=== PATIENT | male | born 1970 | race Caucasian/White ===

== ENCOUNTER → 2016-07-21 | Outpatient (CLI) | payer OTHER ==
--- NOTE | 2016-07-23 08:25 | RAD ---
2-VIEW CHEST X-RAY. DATE: 07/21/2016 8:41 AM CDT INDICATION: MAIN TECHNIQUE: Frontal and lateral views of the chest were performed. COMPARISON:None FINDINGS: Focal opacity noted on the lateral view in the upper lungs. The lungs are clear without focal mass or consolidation. There are no effusions. The cardiomediastinal silhouette is within normal limits. The osseous structure show no significant finding. The visualized abdomen is unremarkable. IMPRESSION: Focal opacity in the upper lung on the lateral view may represent prominent vascular. Follow-up chest x-ray or further correlation with CT chest may be considered. Electronically signed by: Petey Polanco MD 07/23/2016 8:24 AM CDT
== END | disposition home or self-care (01) ==
LOC: RAD 08:35
PROVIDERS: ATTEND Nurse Practitioner Family
DX: R05 Cough (principal)

== ENCOUNTER → 2016-08-10 | Outpatient (CLI) | payer OTHER ==
--- NOTE | 2016-08-10 08:51 | CT ---
Study: CT Chest. Indication: COUGH Technique: CT imaging of the chest obtained without intravenous administration of contrast. This exam was performed according to our departmental dose-optimization program, which includes automated exposure control, adjustment of the mA and/or kV according to patient size and/or use of iterative reconstruction technique. Comparison: Radiographs July 21, 2016. Findings: Heart size normal. No pathologically enlarged mediastinal or hilar lymphadenopathy in the absence of intravenous contrast. No acute osseous abnormality. Lungs clear without consolidation, pleural effusion, pneumothorax, or pulmonary mass. Impression: Unremarkable unenhanced CT of the chest. Electronically signed by: Juan Velazquez MD 08/10/2016 8:51 AM CDT
== END ==
LOC: CT 08:06
PROVIDERS: ATTEND Nurse Practitioner Family
DX: R05 Cough (principal); R93.8 Abnormal findings on diagnostic imaging of other specified body structures

== ENCOUNTER 2019-06-23 19:32 | Inpatient (IN) | payer SELFPAY ==
[2019-06-23] MEDS ORDERED: methylPREDNISolone SODIUM SUC 125 MG/2 ML VIAL IV ONE (19:53)
[2019-06-23] MEDS ORDERED: SODIUM CHLORIDE 0.9% 1000ML 1,000 ML IVS ONE (19:53)
[2019-06-23] MEDS ORDERED: SUCRALFATE 1 GM/10 ML 1 GM UD PO ONE (19:53)
[2019-06-23] MEDS ORDERED: PIPERACILLIN/TAZOBACTAM 3.375 GM in SODIUM CHLORIDE 0.9% 100ML 100 ML IVPB ONE (21:11)
[2019-06-23] MEDS ORDERED: metroNIDAZOLE IV PREMIX 500MG 500 MG in PREMIX BAG 1 BAG IVPB ONE (21:11)
--- NOTE | 2019-06-23 21:12 | CT ---
CT ABDOMEN PELVIS WITH IV CONTRAST Exam date: June 23, 2019 Comparison: None Indication: Lower abdominal pain Technique: Multiple helical axial images were obtained through the abdomen and pelvis using intravenous contrast. Coronal and sagittal reformatted images were obtained. All CT scans at this facility use dose modulation, iterative reconstruction, and/or weight-based dosing when appropriate to reduce radiation dose to as low as reasonably achievable. Findings: Lung bases: [Appear unremarkable]. Liver: [Homogenous attenuation is noted.] Gallbladder/biliary: [Appears unremarkable] Pancreas: [Unremarkable. No evidence of ductal enlargement.] Spleen: Appears unremarkable. No splenomegaly. Adrenals: Unremarkable. Kidneys and ureters: [No evidence of hydronephrosis. Normal enhancement.] There is a 2 mm stone at the inferior pole of the left kidney. There is a 1 mm stone at the superior pole of the right kidney. Bladder: Unremarkable. Pelvic organs: Unremarkable. Bowel: [Colonic diverticula are present. Mid sigmoid colon appears thickened with adjacent stranding compatible with diverticulitis. There are few tiny foci of air adjacent to the thickened sigmoid colon suggestive of perforation. No evidence of abscess. No evidence of bowel obstruction.] Appendix appears unremarkable. Vasculature: Unremarkable. Peritoneum: No free air. No significant free fluid. Lymph nodes: Unremarkable. Soft tissues: Unremarkable. Bones: A few old left rib fractures are present. Impression: 1. Findings compatible with diverticulitis involving the sigmoid colon. Few tiny foci of free air near the sigmoid colon suggestive of perforation. 2. Tiny nonobstructing bilateral renal stones. THIS REPORT CONTAINS FINDINGS THAT MAY BE CRITICAL TO PATIENT CARE: The findings were verbally discussed via telephone conference with Dr. Morelos by Dr. Cancino at 2109 hours, June 23, 2019. The results were acknowledged and understood. Electronically signed by: Adams Cancino MD 06/23/2019 9:10 PM CDT
[2019-06-23] MEDS ORDERED: SODIUM CHLORIDE 0.9% 100ML 100 ML IVPB ONE ×2 (21:13→22:50)
[2019-06-23] MEDS ORDERED: PIPERACILLIN/TAZOBACTAM 3.375 GM VIAL IVPB ONE ×2 (21:13→22:50)
[2019-06-23] MEDS ORDERED: metroNIDAZOLE IV PREMIX 500MG 100 ML IVPB ONE ×2 (21:13→22:49)
--- NOTE | 2019-06-23 21:20 | ED.PDOC ---
History of Present Illness - General Chief Complaint: Abdominal Pain Stated Complaint: lower abdomen pain Time Seen by Provider: 06/23/19 19:46 Source: patient Exam Limitations: no limitations - History of Present Illness Initial Comments: The patient is a 49-year-old male presented to the emergency room secondary to severe worsening of abdominal pain today. The patient had apparently had abdominal pain about 10 days to 2 weeks ago. He does have a history of diverticulitis and was placed on a week's course of Cipro and metronidazole. He did improve but after the antibiotics have been stopped 4 or 5 days, the pain returned today. He reports a fever as well. Mild nausea. He is currently having hiccups. He is pleasant and cooperative. He does report some diarrhea. He also reports a history of ulcerative colitis but has not been on any treatment since 2008. Timing/Duration: unsure Severity: severe Improving Factors: nothing Worsening Factors: nothing Associated Symptoms: loss of appetite, malaise Allergies/Adverse Reactions: Allergies NO KNOWN ALLERGY Allergy (Verified 06/23/19 19:49) Review of Systems - Review of Systems Constitutional: States: fever, malaise EENTM: States: no symptoms reported Respiratory: States: no symptoms reported Cardiology: States: no symptoms reported Gastrointestinal/Abdominal: States: abdominal pain, diarrhea Genitourinary: States: no symptoms reported Musculoskeletal: States: no symptoms reported Skin: States: no symptoms reported Neurological: States: no symptoms reported Endocrine: States: no symptoms reported All other Systems: No Change from Baseline Past Medical History (General) - Patient Medical History Hx Seizures: No Hx Stroke: No Hx Dementia: No Hx Asthma: No Hx of COPD: No Hx Cardiac Disorders: No Hx Congestive Heart Failure: No Hx Pacemaker: No Hx Hypertension: Yes Hx Thyroid Disease: No Hx Diabetes: No Hx Gastroesophageal Reflux: No Hx Renal Disease: No Hx Cancer: No Hx of HIV: No Hx Hepatitis C: No Hx MRSA: No - Vaccination History Hx Tetanus, Diphtheria Vaccination: Yes Hx Influenza Vaccination: Yes Hx Pneumococcal Vaccination: No Immunizations Up to Date: No - Social History Hx Tobacco Use: No Hx Chewing Tobacco Use: No Hx Alcohol Use: Yes Hx Substance Use: No Hx Substance Use Treatment: No Hx Depression: No Feels Threatened In Home Enviroment: No Feels Threatened In a Relationship: No Hx Physical Abuse: No Hx Emotional Abuse: No Hx Suspected Abuse: No - Female History Patient is a Female of Child Bearing Age (10 -59 yrs old): No Family Medical History - Family History Mother Family History: Unknown Physical Exam - Physical Exam General Appearance: Alert, Other - Obviously uncomfortable Eye Exam: bilateral normal Ears, Nose, Throat: hearing grossly normal, normal ENT inspection Neck: full range of motion, supple Respiratory: no respiratory distress, no accessory muscle use Cardiovascular/Chest: normal peripheral pulses, no edema, tachycardia Peripheral Pulses: radial,right: 2+, radial,left: 2+ Gastrointestinal/Abdominal: other - The patient has some guarding of the lower abdomen. No definite palpable mass. Pain is localized to the lower abdomen. Rectal Exam: deferred Extremity: normal range of motion, no pedal edema, normal capillary refill Neurologic: annual giving officer II-XII nml as tested, alert, normal mood/affect, oriented x 3 Skin Exam: other - Red Comments: Vital Signs - 24 hr 06/23/19 06/23/19 06/23/19 19:42 20:49 21:00 Temperature 99.8 F H Pulse Rate [ 130 H 112 H 108 H Pulse Ox] Respiratory 20 16 14 Rate Blood Pressure 138/108 154/87 145/83 [Left Arm] O2 Sat by Pulse 95 93 L 95 Oximetry Progress - Progress Progress: 06/23/19 21:23 Patient is a 49-year-old male presented emergency room with what appears to be sigmoid diverticulitis with microperforation. Dr. Scott, the general surgeon has been consulted and will see the patient in the morning. Will be allowed clear liquids for now and will need to be n.p.o. after around 2 AM for surgical evaluation in the morning. He did receive a dose of IV Solu- Medrol. Blood has been cultured. He did receive a dose of chlorpromazine for the hiccups which seems to have worked. C. difficile on the stool is still pending. The patient is being started on Zosyn and metronidazole. Admit for continued care. - Results/Orders Results/Orders: 06/23/19 19:48 cdiff [CLOSTRIDIUM DIFFICILE AG/TOXIN] Stat 06/23/19 20:[address] scan of abdomen pelvis shows sigmoid diverticulitis with microperforation. No abscess. No obstruction. See report for details. Laboratory Results - last 24 hr 06/23/19 06/23/19 06/23/19 19:57 19:57 19:57 WBC 18.4 H RBC 6.46 H Hgb 19.5 H Hct 57.8 H MCV 89.5 MCH 30.2 MCHC 33.8 RDW 14.7 H Plt Count 230 MPV 6.5 L Absolute Neuts (auto) 16.00 H Absolute Lymphs (auto) 1.10 Absolute Monos (auto) 1.20 H Absolute Eos (auto) 0.00 Absolute Basos (auto) 0.10 Neutrophils % 86.5 H Lymphocytes % 6.1 L Monocytes % 6.7 Eosinophils % 0.1 L Basophils % 0.6 ESR 0 PT 10.8 INR 1.09 PTT (SP) 24.4 D-Dimer, Quantitative 144 Sodium Potassium Chloride Carbon Dioxide Anion Gap BUN Creatinine BUN/Creatinine Ratio Random Glucose Serum Osmolality Lactic Acid Calcium Total Bilirubin AST ALT Alkaline Phosphatase Serum Total Protein Albumin Globulin Albumin/Globulin Ratio Amylase Lipase Urine Color Urine Appearance Urine pH Ur Specific Dillon Urine Protein Urine Glucose (UA) Urine Ketones Urine Blood Urine Nitrite Urine Bilirubin Urine Urobilinogen Ur Leukocyte Esterase Urine RBC Urine WBC Ur Epithelial Cells Urine Bacteria 06/23/19 06/23/19 06/23/19 19:57 19:57 20:30 WBC RBC Hgb Hct MCV MCH MCHC RDW Plt Count MPV Absolute Neuts (auto) Absolute Lymphs (auto) Absolute Monos (auto) Absolute Eos (auto) Absolute Basos (auto) Neutrophils % Lymphocytes % Monocytes % Eosinophils % Basophils % ESR PT INR PTT (SP) D-Dimer, Quantitative Sodium 135 Potassium 3.5 L Chloride 96 L Carbon Dioxide 30 Anion Gap 12.5 BUN 13 Creatinine 1.03 BUN/Creatinine Ratio 12.6 Random Glucose 122 H Serum Osmolality 271.5 L Lactic Acid 1.7 Calcium 9.0 Total Bilirubin 1.8 H AST 43 H ALT 33 Alkaline Phosphatase 45 Serum Total Protein 6.8 Albumin 4.1 Globulin 2.7 Albumin/Globulin Ratio 1.5 Amylase 40 Lipase 33 Urine Color Dk yellow Urine Appearance Clear Urine pH 7.5 Ur Specific Dillon 1.020 Urine Protein Trace Urine Glucose (UA) Negative Urine Ketones Trace Urine Blood Negative Urine Nitrite Negative Urine Bilirubin Small H Urine Urobilinogen 2.0 H Ur Leukocyte Esterase Negative Urine RBC 0 Urine WBC 0 Ur Epithelial Cells 0 Urine Bacteria 0 Departure - Departure Clinical Impression: Diverticulitis ICD-10 Supporting Text: Of the sigmoid colon, initial evaluation, microperforations. Disposition: Admit Patient Condition: Serious Departure Forms: ED Discharge - Pt. Copy, Patient Portal Self Enrollment Referrals: Maritza Baker NP [Primary Care Provider] - 1-2 Weeks Decision To Admit - Decistion To Admit Decision to Admit Reason: Medical Nature Decision to Admit Date: 06/23/19 Decision to Admit Time: 21:25
--- NOTE | 2019-06-23 21:30 | HP ---
SUPERVISING PHYSICIAN: Stephen Treviño MD CHIEF COMPLAINT: Abdominal pain. HISTORY OF PRESENT ILLNESS: This is a 49-year-old male patient who has had about 2 to 3 weeks of left lower quadrant and suprapubic abdominal pain. He has a history of diverticulitis and he was treated as an outpatient with 10 days of Flagyl and ciprofloxacin. He finished his round of antibiotics about 4 to 5 days prior to his admission to the Emergency Room. He has also had several bouts of diarrhea. He has not had a significant flare-up of his diverticulitis since 2003. About 10 years ago, he changed his diet and has not had difficulty since that time. He also has a remote history of ulcerative colitis with several years of treatment although he has not been on any treatment for that in over 15 years. He presented to the Emergency Room with a temperature of 99.8, heart rate 130, blood pressure 138/108, respiratory rate 20, O2 saturation 95%. His temperature did go up to 100.8. Lab was drawn. WBCs 18,400, hemoglobin 19.5, hematocrit 57.8. He had a left shift on his differential. D-dimer was negative at 144. Sodium 135, potassium 3.5, chloride 96. Bilirubin was 1.8, AST 43. Urinalysis was unremarkable. Blood cultures were drawn. The patient received fluids as well as CT of the abdomen did show findings compatible with diverticulitis involving the sigmoid colon. A few tiny foci of free air near the sigmoid colon suggestive of perforation and two tiny nonobstructing bilateral renal stones. He also had complaints of hiccups and was given some Thorazine for those. He was also started on Flagyl. I was called for hospital admission. PAST MEDICAL HISTORY: 1. Hypertension. 2. Depression. 3. Low testosterone. 4. Elevated H&H secondary to testosterone supplementation. 5. Remote history of ulcerative colitis. 6. History of diverticulitis. PAST SURGICAL HISTORY: 1. Thyroid surgery. OUTPATIENT MEDICATIONS: 1. Lexapro. 2. Losartan. ALLERGIES: NO KNOWN DRUG ALLERGIES. FAMILY HISTORY: Positive for colon cancer, lung cancer and coronary artery disease. 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 He is . He denies any tobacco use. He does drink alcohol on a social basis. He has a distant history of IV narcotic abuse. REVIEW OF SYSTEMS: GENERAL: Positive for fever and fatigue. Negative for weight changes. HEENT: Negative for sinus symptoms, ear pain, vision changes or sore throat. RESPIRATORY: Negative for wheezing, coughing or shortness of breath. CARDIAC: Negative for chest pain, palpitations or tachycardia. GASTROINTESTINAL: As per history of present illness. Denies nausea or vomiting. GENITOURINARY: Negative for hematuria, dysuria or polyuria. SKIN: Negative for lesions or rashes. NEUROLOGIC: Negative for headache, weakness or seizures. PHYSICAL EXAMINATION: VITAL SIGNS: Temperature 100.8, heart rate 114, blood pressure 125/85, respiratory rate 16, O2 saturation 95% on room. GENERAL: This is a 49-year-old male patient who is lying in his hospital bed. He is in no acute distress. HEENT: Normocephalic, atraumatic. Pupils are equal and reactive. Oropharynx is clear. NECK: Supple without mass. RESPIRATORY: Essentially clear to auscultation bilaterally. CHEST: There is equal rise and fall of the chest with inspiration and expiration. CARDIOVASCULAR: Regular rate and rhythm. GASTROINTESTINAL: Abdomen is soft. Bowel sounds are hyperactive. He is moderately tender in the left lower quadrant and the suprapubic area. He has guarding. NEUROLOGIC: Awake, alert and oriented times three. Cranial nerves II-XII are grossly intact as tested. LABORATORY: Labs and films are as per history of present illness. IMPRESSION: 1. Sepsis related to acute diverticulitis with an admitting temperature of 100.8, heart rate 130 and WBC 18,400. 2. Hypertension on medications. 3. Depression on medication. PLAN: The patient has been admitted to the hospital. Dr. Scott was consulted in the ER and I have consulted him formally. He will be on bowel rest as well as proton pump inhibitor for ulcer prophylaxis and Lovenox for DVT prophylaxis. I will continue him on Zosyn and Flagyl. I will defer to Dr. Scott for any other issues. We will repeat his lab in the morning. He has also had Dilaudid for pain. We will continue to monitor the patient closely and follow as needed. [facility][id number]
[2019-06-23] MEDS ORDERED: ONDANSETRON INJ 4 MG/2 ML VIAL IV PRN (22:25)
[2019-06-23] MEDS ORDERED: SODIUM CHLORIDE 0.9% (FLUSH) 10 ML SYG IV PRN (22:25)
[2019-06-23] MEDS ORDERED: IV SET AND CAP CHANGE INJ INJ SCH (22:30)
[2019-06-23] MEDS: HYDROmorphone HCL INJ 2 MG/ML VIAL IV PRN (22:57)
[2019-06-23] MEDS: KCL 20MEQ/D5NS 1,000 ML IVS PRN (22:57)
[2019-06-24] MEDS: PIPERACILLIN/TAZOBACTAM 3.375 GM in SODIUM CHLORIDE 0.9% 100ML 100 ML IVPB SCH ×4 (03:30→20:32)
[2019-06-24] MEDS: HYDROmorphone HCL INJ 2 MG/ML VIAL IV PRN ×4 (05:55→21:00)
[2019-06-24] MEDS: PANTOPRAZOLE SODIUM IV 40 MG VIAL IV SCH (05:56)
[2019-06-24] MEDS: metroNIDAZOLE IV PREMIX 500MG 500 MG in PREMIX BAG 1 BAG IVPB SCH ×3 (05:56→22:24)
[2019-06-24] MEDS ORDERED: LOSARTAN POTASSIUM 25 MG TAB ONE (07:21)
[2019-06-24] MEDS ORDERED: PIPERACILLIN/TAZOBACTAM 3.375 GM VIAL IVPB ONE ×4 (07:22→19:04)
[2019-06-24] MEDS ORDERED: SODIUM CHLORIDE 0.9% 100ML 100 ML IVPB ONE ×3 (07:22→19:04)
[2019-06-24] MEDS: SODIUM CHLORIDE 0.9% (FLUSH) 10 ML SYG IV SCH ×2 (08:46→20:34)
[2019-06-24] MEDS: ESCITALOPRAM 10 MG TAB PO SCH (08:48)
[2019-06-24] MEDS: LOSARTAN POTASSIUM 25 MG TAB PO SCH (08:48)
[2019-06-24] MEDS ORDERED: MAGNESIUM SULFATE PREMIX 2GM 2 GM in PREMIX BAG 1 BAG IVPB ONE (09:02)
[2019-06-24] MEDS ORDERED: MAGNESIUM SULFATE PREMIX 2GM 50 ML IVPB ONE (09:28)
[2019-06-24] MEDS: KCL 20MEQ/D5NS 1,000 ML IVS PRN ×2 (10:00→19:08)
[2019-06-24] MEDS ORDERED: metroNIDAZOLE IV PREMIX 500MG 100 ML IVPB ONE ×2 (13:56→19:04)
[2019-06-24] MEDS: ENOXAPARIN SODIUM 40 MG/0.4 ML SYG SUBCU SCH (21:30)
[2019-06-25] MEDS ORDERED: PIPERACILLIN/TAZOBACTAM 3.375 GM VIAL IVPB ONE ×4 (01:33→21:13)
[2019-06-25] MEDS ORDERED: metroNIDAZOLE IV PREMIX 500MG 100 ML IVPB ONE ×3 (01:33→21:13)
[2019-06-25] MEDS ORDERED: SODIUM CHLORIDE 0.9% 100ML 100 ML IVPB ONE ×4 (01:33→21:14)
[2019-06-25] MEDS: PIPERACILLIN/TAZOBACTAM 3.375 GM in SODIUM CHLORIDE 0.9% 100ML 100 ML IVPB SCH ×4 (03:33→21:28)
[2019-06-25] MEDS: metroNIDAZOLE IV PREMIX 500MG 500 MG in PREMIX BAG 1 BAG IVPB SCH ×3 (05:48→22:28)
[2019-06-25] MEDS: HYDROmorphone HCL INJ 2 MG/ML VIAL IV PRN ×3 (05:49→14:35)
[2019-06-25] MEDS: PANTOPRAZOLE SODIUM IV 40 MG VIAL IV SCH (06:11)
[2019-06-25] MEDS: LOSARTAN POTASSIUM 25 MG TAB PO SCH (08:34)
[2019-06-25] MEDS: ESCITALOPRAM 10 MG TAB PO SCH (08:35)
[2019-06-25] MEDS: SODIUM CHLORIDE 0.9% (FLUSH) 10 ML SYG IV SCH ×2 (08:35→21:29)
[2019-06-25] MEDS: KCL 20MEQ/D5NS 1,000 ML IVS PRN ×2 (10:27→21:30)
--- NOTE | 2019-06-25 10:30 | RAD ---
EXAM DESCRIPTION: Abdomen Flat Upright CLINICAL HISTORY: worsening abd pain COMPARISON: None. FINDINGS: AP supine and upright views of the abdomen show a nonspecific, nonobstructive bowel gas pattern. Subtle lucency below the right hemidiaphragm seen on the AP upright view.. No air-filled dilated loops of small bowel are seen. No significant air-fluid levels are identified. No obvious organomegaly is seen. No abnormal calcifications are seen in the expected location of the renal collecting systems. Visualized lung bases are otherwise unremarkable. IMPRESSION: Subtle lucency below the right hemidiaphragm is seen concerning for free intraperitoneal air versus imaging artifact. Recommend further evaluation with left lateral decubitus x-ray of the abdomen or CT imaging . Bowel gas pattern is otherwise nonspecific Findings on this exam were called to LUIS ALBERTO Garner at 06/25/2019 10:23 AM CDT by Nirav Ashraf MD. Electronically signed by: Gallo Ashraf MD 06/25/2019 10:28 AM CDT
--- NOTE | 2019-06-25 13:34 | PN ---
SUPERVISING PHYSICIAN: Stephen Treviño MD DATE: 06/24/19 SUBJECTIVE: The patient is lying in bed. He has no complaints of nausea, vomiting, diarrhea or constipation although he did have some diarrhea in the ER. There is no chest pain or shortness of breath. OBJECTIVE: VITAL SIGNS: Temperature 97.4. Heart rate 81. Blood pressure 144/82. Respiratory rate 16. O2 saturation 98% on room air. RESPIRATORY: Essentially clear to auscultation bilaterally. CARDIAC: Regular rate and rhythm. GASTROINTESTINAL: Abdomen is soft, nondistended. He does have some tenderness in the suprapubic to left lower quadrant area. There is some mild guarding, but no rebound tenderness. NEUROLOGIC: Awake, alert and oriented times three. LABORATORY: WBCs have improved to 13,300, hemoglobin 17.2, hematocrit 51.6. Sodium 134, potassium 4.7, chloride 99. Calcium 8.3, magnesium 1.7. Bilirubin 1.8. Preliminary blood cultures show no growth after 24 hours. All other labs and films have been reviewed via the EMR. ASSESSMENT: 1. Sepsis related to acute diverticulitis with an admitting temperature of 100.8, heart rate 130 and WBC 18,400. 2. Hypertension. 3. Depression on medication. PLAN: We will continue present supportive care. Dr. Scott saw the patient and we will continue with bowel rest. He did allow him to have a few ice chips. We will monitor that closely. I ordered labs for in the morning. I will defer any other issues to Dr. Scott. We will continue to monitor the patient closely and follow as needed. #[id number] [facility]
--- NOTE | 2019-06-25 15:25 | PN ---
SUPERVISING PHYSICIAN: Stephen Treviño MD DATE: 06/25/19 SUBJECTIVE: The patient is lying in bed. He earlier today had increased abdominal pain, especially in the suprapubic area, but it has improved since that time. He said he had a bowel movement and after that, the pain was much less severe. He denies shortness of breath, nausea or vomiting. OBJECTIVE: VITAL SIGNS: Temperature 99.3. Heart rate 86. Blood pressure 161/72. Respiratory rate 16. O2 saturation 96% on room air. RESPIRATORY: Essentially clear to auscultation bilaterally. CARDIAC: Regular rate and rhythm. GASTROINTESTINAL: Abdomen is soft, nondistended. He does have some moderate tenderness in the suprapubic to left lower quadrant area. He does have some guarding, but no rebound tenderness. NEUROLOGIC: Awake, alert and oriented times three. LABORATORY: WBCs have normalized to 8.6. He does have a left shift on his differential. Electrolytes are basically within normal limits. Total bilirubin improved to 1.4. Preliminary blood cultures show no growth after 24 hours. Abdominal x-ray shows subtle lucency below the right hemidiaphragm seen concerning for free intraperitoneal air versus imaging artifact. Recommend further evaluation with left lateral decubitus x-ray of the abdomen or CT imaging. Bowel gas pattern is otherwise nonspecific. All other labs and films have been reviewed via the EMR. ASSESSMENT: 1. Sepsis related to acute diverticulitis with an admitting temperature of 100.8, heart rate 130 and WBC 18,400. 2. Hypertension. 3. Depression on medication. PLAN: We will continue present supportive care. He will continue with bowel rest, especially given his increased pain this morning. Dr. Scott and I were at bedside and discussed his plan of care with the patient. I will hold on any lab for now. We will continue to monitor the patient closely and follow as needed. [facility][id number] [facility]
[2019-06-25] MEDS: ENOXAPARIN SODIUM 40 MG/0.4 ML SYG SUBCU SCH (21:29)
[2019-06-26] MEDS ORDERED: SODIUM CHLORIDE 0.9% 100ML 100 ML IVPB ONE ×2 (02:27→08:30)
[2019-06-26] MEDS ORDERED: metroNIDAZOLE IV PREMIX 500MG 100 ML IVPB ONE (02:27)
[2019-06-26] MEDS ORDERED: PIPERACILLIN/TAZOBACTAM 3.375 GM VIAL IVPB ONE ×2 (02:27→08:30)
[2019-06-26] MEDS: PIPERACILLIN/TAZOBACTAM 3.375 GM in SODIUM CHLORIDE 0.9% 100ML 100 ML IVPB SCH ×2 (03:30→08:54)
[2019-06-26] MEDS: PANTOPRAZOLE SODIUM IV 40 MG VIAL IV SCH (06:15)
[2019-06-26] MEDS: metroNIDAZOLE IV PREMIX 500MG 500 MG in PREMIX BAG 1 BAG IVPB SCH (06:18)
[2019-06-26] MEDS: LOSARTAN POTASSIUM 25 MG TAB PO SCH (08:54)
[2019-06-26] MEDS: ESCITALOPRAM 10 MG TAB PO SCH (08:54)
[2019-06-26] MEDS: SODIUM CHLORIDE 0.9% (FLUSH) 10 ML SYG IV SCH (08:55)
[2019-06-26 09:12] VITALS: BP 131/92; TEMP 98.6; O2SAT 96
[2019-06-26] MEDS ORDERED: metroNIDAZOLE 500 MG TAB PO SCH (14:00)
[2019-06-26] MEDS ORDERED: AMOXICILLIN & POT CLAVULANATE 875 MG TAB PO SCH (14:00)
--- NOTE | 2019-06-27 08:46 | DS ---
SUPERVISING PHYSICIAN: Stepehn Treviño MD ADMISSION DIAGNOSIS: 1. Sepsis related to acute diverticulitis with an admitting temperature of 100.8, heart rate 130 and WBC 18,400. 2. Hypertension on medications. 3. Depression on medication. DISCHARGE DIAGNOSIS: 1. Acute diverticulitis, responding antibiotic treatment, tolerating oral intake. 2. Sepsis secondary to #1, resolved with treatment. 2. Hypertension. 3. Depression on medication. REASON FOR HOSPITALIZATION: This is a 49-year-old male patient who has had about 2 to 3 weeks of left lower quadrant and suprapubic abdominal pain. He has a history of diverticulitis and he was treated as an outpatient with 10 days of Flagyl and ciprofloxacin. He finished his round of antibiotics about 4 to 5 days prior to his admission to the Emergency Room. He has also had several bouts of diarrhea. He has not had a significant flare-up of his diverticulitis since 2003. About 10 years ago, he changed his diet and has not had difficulty since that time. He also has a remote history of ulcerative colitis with several years of treatment although he has not been on any treatment for that in over 15 years. He presented to the Emergency Room with a temperature of 99.8, heart rate 130, blood pressure 138/108, respiratory rate 20, O2 saturation 95%. His temperature did go up to 100.8. Lab was drawn. WBCs 18,400, hemoglobin 19.5, hematocrit 57.8. He had a left shift on his differential. D-dimer was negative at 144. Sodium 135, potassium 3.5, chloride 96. Bilirubin was 1.8, AST 43. Urinalysis was unremarkable. Blood cultures were drawn. The patient received fluids as well as CT of the abdomen did show findings compatible with diverticulitis involving the sigmoid colon. A few tiny foci of free air near the sigmoid colon suggestive of perforation and two tiny nonobstructing bilateral renal stones. He also had complaints of hiccups and was given some Thorazine for those. He was also started on Flagyl. I was called for hospital admission. LABORATORY: Initial white count was 18,400, on discharge was 8,600. He did have a left shift which was still present at discharge, but improving. Hemoglobin and hematocrit stable 16.5 and 49.7 at discharge with platelet count 153,000. Chemistries on discharge showed normal electrolytes with BUN 10, creatinine 1.0, bilirubin slightly elevated at 1.4 which was down from admission of 1.8. Liver functions were normal on discharge. Amylase and lipase were both normal. Urinalysis showed a small amount of bilirubin, 2.0 urobilinogen, otherwise within normal limits. MICROBIOLOGY: Blood cultures showed no growth at 48 hours. C. difficile toxin A and B both negative. RADIOLOGY: Abdominopelvic CT on admission per radiologic interpretation showed findings compatible with diverticulitis involving the sigmoid colon with a few tiny foci of free air near the sigmoid colon suggestive of perforation with tiny nonobstructing bilateral stones. Final abdominal x-ray on 06/25/19 per radiologic interpretation showed findings of subtle lucency below the right hemidiaphragm concerning for free intraperitoneal air versus imaging artifact. Please see those reports for details. CONSULTATION: Thad Scott MD. Please see his notes for details. HOSPITAL COURSE: Mr. Martinez was admitted for complications of acute diverticulitis and started with antibiotics with Zosyn and Flagyl. His pain resolved prior to discharge and he was stable. His labs normalized. He was tolerating oral intake on day of discharge and was stable clinically and felt to be stable enough to discharge to continue with outpatient management. DISCHARGE ASSESSMENT: VITAL SIGNS: Temperature 98.6, pulse 79, blood pressure 131/92, respirations 16, saturation 96% on room air. GENERAL: The patient was resting comfortably and did not appear to be in any acute distress. CHEST: Clear to auscultation. HEART: Regular rate and rhythm. ABDOMEN: Soft with mild tenderness noted to the suprapubic area. Otherwise, no rebound tenderness, no point tenderness, no peritoneal signs. Bowel sounds were present. NEUROLOGIC: Alert and oriented x3. PLAN: Mr. Martinez was discharged with instructions to followup with his primary care provider as well as Dr. Scott within the next week to 10 days or sooner if needed. He was continued on antibiotic therapy with 5-day course continued of Augmentin and Flagyl as noted below. He was instructed to resume his diet slowly as tolerated. He was to push fluids to prevent dehydration. Activity to increase as tolerated. CONDITION ON DISCHARGE: Stable and improved. DISPOSITION: The patient was discharged home in stable condition. MEDICATIONS ON DISCHARGE: 1. Augmentin 875 mg q.8h., #15, no refills. 2. Flagyl 500 mg q.8h., #15, no refills. All other medications prior to hospitalization were continued as is. #[id number] [facility]
== END 2019-06-26 14:30 | disposition home or self-care (01) | DRG 872 ==
LOC: ER 19:32 → OBSVTOIN 21:28 → MS 21:28
PROVIDERS: ADMIT Nurse Practitioner Acute Care; ATTEND Nurse Practitioner Family
PROC: BW211ZZ Computerized Tomography (CT Scan) of Abdomen and Pelvis using Low Osmolar Contrast (ICD-10-PCS; principal; 2019-06-23)
DX: A41.9 Sepsis, unspecified organism (principal); K57.20 Diverticulitis of large intestine with perforation and abscess without bleeding; I10 Essential (primary) hypertension; F32.9 Major depressive disorder, single episode, unspecified; R06.6 Hiccough; E29.1 Testicular hypofunction; Z87.19 Personal history of other diseases of the digestive system; Z79.899 Other long term (current) drug therapy

== ENCOUNTER → 2019-10-07 | Outpatient (CLI) | payer OTHER ==
--- NOTE | 2019-10-07 09:40 | RAD ---
EXAM DESCRIPTION: Fingers,Right (accession [id number]), Hand,Right 3 Views (accession [id number]) CLINICAL HISTORY: 49 years Male, PAIN IN FINGER THUMB COMPARISON: None. Findings: Six view(s)/radiograph(s) Comminuted intra-articular mildly displaced right thumb metacarpal base fracture. No other fracture identified. No dislocation. Joint spaces are maintained. IMPRESSION: Comminuted intra-articular right thumb metacarpal base fracture. Electronically signed by: Noe Posey MD 10/07/2019 9:38 AM CDT
--- NOTE | 2019-10-07 09:40 | RAD ---
EXAM DESCRIPTION: Fingers,Right (accession [id number]), Hand,Right 3 Views (accession [id number]) CLINICAL HISTORY: 49 years Male, PAIN IN FINGER THUMB COMPARISON: None. Findings: Six view(s)/radiograph(s) Comminuted intra-articular mildly displaced right thumb metacarpal base fracture. No other fracture identified. No dislocation. Joint spaces are maintained. IMPRESSION: Comminuted intra-articular right thumb metacarpal base fracture. Electronically signed by: Noe Posey MD 10/07/2019 9:38 AM CDT
== END ==
LOC: RAD 08:45
PROVIDERS: ATTEND Orthopaedic Surgery
DX: S62.231A Other displaced fracture of base of first metacarpal bone, right hand, initial encounter for closed fracture (principal)